=== PATIENT | female | born 1985 | race Two or more races ===

== ENCOUNTER 2022-12-24 17:10 | Emergency (ER) | payer OTHER ==
[~2022-12-24] VITALS: Ht 162.6 cm; Wt 80.0 kg
[2022-12-24 18:37] VITALS: BP 141/77
[2022-12-24] MEDS ORDERED: AMOX-277 PO (19:00)
== END 2022-12-24 19:04 | disposition home or self-care (01) ==
LOC: ER 17:10
DX: J02.9 Acute pharyngitis, unspecified (principal); Z79.2 Long term (current) use of antibiotics; Z88.8 Allergy status to other drugs, medicaments and biological substances